=== PATIENT | male | born 1960 | race Caucasian/White ===

== ENCOUNTER 2018-10-28 21:53 | Emergency (ER) | payer OTHER ==
[~2018-10-28] VITALS: Ht 188 cm; Wt 102.1 kg
--- NOTE | 2018-10-28 22:05 | NUR ---
Patient ambulated with stable gait. A/Ox4. Speech is clear speaks in complete sentences. Patient came with a chapperone for med clearance into [facility] detox facility. Respiratory even and unlabored, no cough or sob. Denies any n/v/d
[2018-10-28 22:28] LABS: BASOPHILS # (AUTO) 0.1 K/uL (0.0-8.0); EOSINOPHILS # (AUTO) 0.5 K/uL (0.0-0.7); EOSINOPHILS % (AUTO) 7.4 % (0.0-7.0); HEMATOCRIT 47.1 % (36.7-47.1); HEMOGLOBIN 16.1 g/dL (12.5-16.3); LYMPHOCYTES % (AUTO) 31.3 % (20.5-51.5); MEAN CORPUSCULAR HEMOGLOBIN 31.4 uug (23.8-33.4); MEAN CORPUSCULAR HGB CONC 34 g/dL (32.5-36.3); MEAN CORPUSCULAR VOLUME 92.1 fL (73.0-96.2); MONOCYTES # (AUTO) 0.3 K/uL (2.0-10.0); MONOCYTES % (AUTO) 5.2 % (0.0-11.0); NEUTROPHILS # (AUTO) 3.5 K/uL (1.8-8.9); NEUTROPHILS % (AUTO) 55.1 % (38.5-71.5); PLATELET COUNT (AUTO) 243 K/uL (152-348); RED BLOOD CELL COUNT(AUTO) 5.11 MIL/uL (4.06-5.63); WHITE BLOOD COUNT (AUTO) 6.4 K/uL (3.6-10.2)
[2018-10-28 22:37] LABS: CREATININE 1.1 mg/dL (0.6-1.3); POTASSIUM 3.6 mmol/L (3.5-5.1)
[2018-10-28] MEDS ORDERED: PANTOPRAZOLE SODIUM 40 MG TABLET.DR PO ONE ×2 (22:45→22:53)
[2018-10-28] MEDS ORDERED: IV NS 1000 ML 1,000 ML IV ONE (22:45)
[2018-10-28] MEDS ORDERED: ASPIRIN 325 MG TABLET PO ONE (22:45)
[2018-10-28 22:50] LABS: BILIRUBIN,DIRECT 0.1 mg/dL (0.0-0.2); BILIRUBIN,TOTAL 0.3 mg/dL (0.1-1.0)
[2018-10-28 22:51] LABS: TOTAL PROTEIN, SERUM 7.4 g/dL (6.4-8.2)
[2018-10-28] MEDS ORDERED: ASPIRIN 325 MG TABLET ONE (22:53)
[2018-10-28] MEDS ORDERED: LORAZEPAM 2 MG/1 ML VIAL ONE (23:10)
[2018-10-28] MEDS ORDERED: LORAZEPAM 2 MG/1 ML VIAL IV ONE (23:15)
[2018-10-28] MEDS ORDERED: IV NORMAL SALINE 1000 ML BAG IV ONE (23:15)
[2018-10-29] MEDS ORDERED: IV NORMAL SALINE 1000 ML BAG IV ONE
[2018-10-29] MEDS ORDERED: LORAZEPAM 2 MG/1 ML VIAL ONE ×2 (00:06→00:49)
[2018-10-29] MEDS ORDERED: LORAZEPAM 2 MG/1 ML VIAL IV ONE ×2 (00:15→00:45)
--- NOTE | 2018-10-29 00:51 | NUR ---
Patient in bed resting, NAD.
[2018-10-29 01:00] LABS: *BILIRUBIN,URIN NEGATIVE (NEGATIVE); *CLARITY,URINE CLEAR (CLEAR); *COLOR,URINE YELLOW (YELLOW); *KETONES,URINE NEGATIVE (NEGATIVE); *UROBILINOGEN,URINE 0.2 E.U./dl (NORMAL); LEUKOCYTE ESTERASE ,URINE NEGATIVE (NEGATIVE); NITRITE, URINE NEGATIVE (NEGATIVE); UGLUCOSE NEGATIVE (NEGATIVE)
[2018-10-29 01:01] LABS: *BLOOD, URINE TRACE (NEGATIVE)
[2018-10-29 01:07] LABS: BACTERIA,URINE R /HPF (NONE SEEN); MUCUS,URINE FEW /LPF (0-FEW); RBC,URINE 0-3 /HPF (0-3); WBC,URINE NONE SEEN /HPF (0-3)
[2018-10-29] MEDS ORDERED: MAG HYDROX/AL HYDROX/SIMETH 30 ML LIQUID UDC PO ONE (01:45)
[2018-10-29] MEDS ORDERED: MAG HYDROX/AL HYDROX/SIMETH 30 ML LIQUID UDC ONE (01:48)
[2018-10-29 02:10] VITALS: BP 132/79
--- NOTE | 2018-10-29 02:10 | NUR ---
Patient discharged to home in stable conditon. Written and verbal after care instructions given. Patient verbalizes understanding of instructions. Patient ambulated with stable gait.
== END 2018-10-29 02:11 | disposition home or self-care (01) ==
LOC: ER 21:53
DX: F10.20 Alcohol dependence, uncomplicated (principal); I10 Essential (primary) hypertension; E78.5 Hyperlipidemia, unspecified; Y90.9 Presence of alcohol in blood, level not specified
CPT/HCPCS: 36415 ×2; 71045; 80048; 80076; 81000; 81001; 83880; 84443; 84484 ×2; 85025; 93005 ×2; 96374; 96376; 99284; J2060 ×3; 70030-TC; A4663; J7030